=== PATIENT | female | born 1960 | race Caucasian/White ===

== ENCOUNTER 2020-02-13 18:17 | Emergency (ER) | payer BC ==
--- NOTE | 2020-02-13 18:57 | EDM.PDOC ---
ED HPI GENERAL MEDICAL PROBLEM - General Chief Complaint: Lower Extremity Injury/Pain Stated Complaint: LEFT CHOW INJURY/CUT Time Seen by Provider: 02/13/20 18:45 Source of Information: Reports: Patient, Old Records, RN History Limitations: Reports: No Limitations - History of Present Illness INITIAL COMMENTS - FREE TEXT/NARRATIVE: 59 yo female [place] and fell lacerating her anterior L chow area. She did some preliminary cleaning, but recognized that she was not getting all of the debri out. Has RA and is on meds that may increase her risk of infection. Thinks her tetanus was 4 yrs ago. No other injuries. Onset: Today Onset Date: 02/13/20 Onset Time: 18:00 Duration: Minutes:, Constant Location: Reports: Lower Extremity, Left Quality: Reports: Dull Severity: Mild Improves with: Reports: None Worsens with: Reports: Other (touching wound) Context: Reports: Trauma Associated Symptoms: Reports: No Other Symptoms Treatments [employer] T[employer]ER: Reports: Other (see below) (water ran over wound) Left Leg Pain Score (Numeric/FACES): 2 - Related Data Allergies Allergy/AdvReac Type Severity Reaction Status Date / Time Sulfa (Sulfonamide Allergy Cannot Verified 02/13/20 18:33 Antibiotics) Remember Home Meds: Home Meds Zolpidem Tartrate [Zolpidem Tartrate ER] 6.25 mg PO DAILY 02/22/14 [History] estradioL [Estradiol] 1 mg PO DAILY 02/22/14 [History] DULoxetine [Cymbalta] 90 mg PO DAILY 11/30/15 [History] buPROPion HCl [Bupropion Xl] 150 mg PO DAILY 11/30/15 [History] predniSONE [Prednisone] 10 mg PO DAILY 12/02/15 [History] Hydroxychloroquine Sulfate 200 mg PO DAILY 02/13/20 [History] lamoTRIgine [Lamictal] 100 mg PO BEDTIME 02/13/20 [History] Past Medical History HEENT History: Reports: Impaired Vision Musculoskeletal History: Reports: RA Other Musculoskeletal History: bone/joint autoimmune disorder Psychiatric History: Reports: Anxiety, Bipolar - Past Surgical History GI Surgical History: Reports: Other (See Below) Social & Family History - Tobacco Use Smoking Status *Q: Never Smoker - Caffeine Use Caffeine Use: Reports: Coffee, Soda - Recreational Drug Use Recreational Drug Use: No Review of Systems - Review of Systems Review Of Systems: See Below Constitutional: Reports: No Symptoms Musculoskeletal: Reports: No Symptoms Skin: Reports: Wound (L chow) Neurological: Reports: No Symptoms ED EXAM, GENERAL - Physical Exam Exam: See Below Exam Limited By: No Limitations General Appearance: Alert, WD/WN, No Apparent Distress Extremities: Normal Inspection, Normal Range of Motion, No Pedal Edema, Other (wound L anterior chow area). No: Non-Tender, Pedal Edema, Limited Range of Motion, Increased Warmth, Redness Neurological: Alert, Oriented, CN II-XII Intact, Normal Cognition, No Motor/Sensory Deficits Psychiatric: Normal Affect, Normal Mood Skin Exam: Warm, Dry, Normal Color, No Rash, Wound/Incision (somewhat gaping approx 3 cm vertical laceration over the distal/anterior L chow. No active bleeding, but there is some debri present. CMS is intact distally.). No: Intact, Increased Warmth ED TRAUMA EXTREMITY PROCEDURES - Laceration/Wound Repair Left Lower Anterior Leg Lac/Wound Length In cm: 3.5 Appearance: Subcutaneous, Linear, Moderately Contaminated Distal NVT: Neuro & Vascular Intact, No Tendon Injury Anesthetic Type: Local Local Anesthesia - Lidocaine (Xylocaine): 1% with EPI (8 ml) Local Anesthetic Volume: Other (8) Skin Prep: Saline Saline Irrigation (cc's): 75 Exploration/Debridement/Repair: Wound Explored, Moderate Debridement Closed With: Sutures Suture Size: 4-0 (and some 5-0) # of Sutures: 11 Suture Type: Nylon, Interrupted, Simple, Mattress Drain Placement: No Sterile Dressing Applied: Nurse Tetanus Status Addressed: Yes Complications: No Course - Vital Signs Text/Narrative:: Wound anesthetized locally with 5 ml of 1% lido + epi. Wound irrigated by RN. Last Recorded V/S: Last Vital Signs Temp 35.9 C L 02/13/20 18:41 Pulse 80 02/13/20 19:29 Resp 12 02/13/20 18:41 BP 128/84 02/13/20 19:29 Pulse Ox 97 02/13/20 19:29 Departure - Departure Time of Disposition: 19:40 Disposition: Home, Self-Care 01 Condition: Fair Clinical Impression: Laceration of left leg Qualifiers: Encounter type: initial encounter Qualified Code(s): S81.812A - Laceration without foreign body, left lower leg, initial encounter - Discharge Information *PRESCRIPTION DRUG MONITORING PROGRAM REVIEWED*: Not Applicable *COPY OF PRESCRIPTION DRUG MONITORING REPORT IN PATIENT [place]: Not Applicable Instructions: Sutured Wound Care, [id number] Referrals: Rosana Azul MD [Primary Care Provider] - Forms: ED Department Discharge Additional Instructions: Keep leg elevated above your heart for 24 hrs. Clean wound twice daily with soap and water. Dry. Apply antibiotic ointment and a new dressing. Take acetaminophen as needed for pain relief. Recheck for signs of infection. Stitches out in about 10-11 days with your provider. Keep wound clean for 3 days. Sepsis Event Note (ED) - Evaluation Sepsis Screening Result: No Definite Risk - Focused Exam Vital Signs: Vital Signs Temp Pulse Resp BP Pulse Ox 02/13/20 19:29 80 128/84 97 02/13/20 18:41 35.9 C L 94 12 123/79 97 02/13/20 18:29 35.9 C L 94 12 123/79 97
[2020-02-13 19:30] VITALS: BP 128/84; PULSE 80
[2020-02-13] MEDS ORDERED: Bacitracin Oint 1 GM U/D Packet TOP ONE (19:30)
== END 2020-02-13 19:50 | disposition home or self-care (01) ==
LOC: JP.ED 18:17
DX: S81.812A Laceration without foreign body, left lower leg, initial encounter (principal); F41.9 Anxiety disorder, unspecified; F31.9 Bipolar disorder, unspecified; Z88.2 Allergy status to sulfonamides; Z79.899 Other long term (current) drug therapy; W19.XXXA Unspecified fall, initial encounter; Y93.02 Activity, running
CPT/HCPCS: 12002; 99282

== ENCOUNTER 2020-07-24 06:55 | Emergency (ER) | payer BC ==
[2020-07-24 07:20] VITALS: BP 119/76; PULSE 97
--- NOTE | 2020-07-24 07:41 | EDM.PDOC ---
ED HPI GENERAL MEDICAL PROBLEM - General Chief Complaint: General Stated Complaint: PAIN UNDER RIB AREA AND A RASH Time Seen by Provider: 07/24/20 07:15 Source of Information: Reports: Patient History Limitations: Reports: No Limitations - History of Present Illness INITIAL COMMENTS - FREE TEXT/NARRATIVE: 59-year-old female with some vague left-sided chest discomfort and shoulder discomfort over the past week, no shortness of breath or fever but she noticed a rash today. She was concerned she may have shingles. She takes valacyclovir on a as needed basis for cold sores and last took medication 2 to 3 weeks ago. Onset: Gradual (Vague symptoms for for 5 days, noticed a rash today) Location: Reports: Chest (Left side) Associated Symptoms: Reports: Chest Pain Left Chest Pain Score (Numeric/FACES): 6 - Related Data Allergies Allergy/AdvReac Type Severity Reaction Status Date / Time Sulfa (Sulfonamide Allergy Cannot Verified 07/24/20 07:06 Antibiotics) Remember Home Meds: Home Meds Zolpidem Tartrate [Zolpidem Tartrate ER] 6.25 mg PO DAILY 02/22/14 [History] DULoxetine [Cymbalta] 90 mg PO DAILY 11/30/15 [History] buPROPion HCl [Bupropion Xl] 300 mg PO DAILY 11/30/15 [History] predniSONE [Prednisone] 5 mg PO DAILY 12/02/15 [History] Hydroxychloroquine Sulfate 200 mg PO DAILY 02/13/20 [History] lamoTRIgine [Lamictal] 100 mg PO BEDTIME 02/13/20 [History] Leflunomide 1 tab PO ASDIRECTED 07/24/20 [History] Pregabalin [Lyrica] 75 mg PO BID 07/24/20 [History] Upadacitinib [Rinvoq] 1 tab PO DAILY 07/24/20 [History] Past Medical History HEENT History: Reports: Impaired Vision [employer] History: Reports: Musculoskeletal History: Reports: RA Other Musculoskeletal History: bone/joint autoimmune disorder Psychiatric History: Reports: Anxiety, Bipolar - Infectious Disease History Infectious Disease History: Reports: Chicken Pox - Past Surgical History GI Surgical History: Reports: Other (See Below) Other GI Surgeries/Procedures: ileus - 2015. mass removed (non-cancerous) in 2013 Social & Family History - Tobacco Use Tobacco Use Status *Q: Never Tobacco User Second Hand Smoke Exposure: No - Caffeine Use Caffeine Use: Reports: Coffee, Soda - Alcohol Use Days Per Week of Alcohol Use: 1 Number of Drinks Per Day: 1 Total Drinks Per Week: 1 - Recreational Drug Use Recreational Drug Use: No ED ROS GENERAL - Review of Systems Review Of Systems: See Below Constitutional: Denies: Fever, Chills Respiratory: Denies: Shortness of Breath Cardiovascular: Reports: Chest Pain (Left side) GI/Abdominal: Denies: Abdominal Pain, Nausea, Vomiting Skin: Reports: Rash Neurological: Denies: Headache ED EXAM, GENERAL - Physical Exam Exam: See Below Exam Limited By: No Limitations General Appearance: Alert, No Apparent Distress Head: Atraumatic Respiratory/Chest: No Respiratory Distress Neurological: Alert, Oriented Psychiatric: Normal Affect, Normal Mood Skin Exam: Warm, Dry, Other (She does have a typical shingles pattern rash on the left flank extending around to the left chest around the T11 distribution. There are scattered early vesicles on an erythematous base) Course - Vital Signs Last Recorded V/S: Last Vital Signs Temp 96.3 F L 07/24/20 07:19 Pulse 97 07/24/20 07:19 Resp 16 07/24/20 07:19 BP 119/76 07/24/20 07:19 Pulse Ox 95 07/24/20 07:19 - Re-Assessments/Exams Free Text/Narrative Re-Assessment/Exam: 07/24/20 07:57 Patient will take her valacyclovir twice daily for 5 days and take her Lyrica as prescribed. I also gave her 10 hydrocodone for extra pain control. She will return if worsening at any time such as shortness of breath or persistent fever, or recheck in 5 to 7 days if not improving satisfactorily. She will continue her other regular medications. Departure - Departure Time of Disposition: 07:51 Disposition: Home, Self-Care 01 Clinical Impression: Shingles Qualifiers: Herpes zoster complications: without complications Qualified Code(s): B02.9 - Zoster without complications - Discharge Information Instructions: Shingles, [id number] Referrals: PCP,None [Primary Care Provider] - Forms: ED Department Discharge Care Plan Goals: Take valacyclovir twice daily for at least 5 days, as well as Lyrica as prescribed. An anti-inflammatory such as ibuprofen or naproxen will help, and add stronger pain medications as directed if needed. Recheck at any time if worsening such as shortness of breath, persistent fever or vomiting the medications. Consider rechecking in 5 to 7 days if not improving satisfactorily. Sepsis Event Note (ED) - Evaluation Sepsis Screening Result: No Definite Risk - Focused Exam Vital Signs: Vital Signs Temp Pulse Resp BP Pulse Ox 07/24/20 07:19 96.3 F L 97 16 119/76 95
== END 2020-07-24 07:51 | disposition home or self-care (01) ==
LOC: JP.ED 06:55
DX: B02.9 Zoster without complications (principal); F41.9 Anxiety disorder, unspecified; F31.9 Bipolar disorder, unspecified; Z79.899 Other long term (current) drug therapy; Z88.2 Allergy status to sulfonamides
CPT/HCPCS: 99282

== ENCOUNTER 2023-07-01 07:31 | Emergency (ER) | payer OTHER ==
[2023-07-01] MEDS ORDERED: Acetaminophen/HYDROcodone 325-7.5 MG Tab PO ONE (08:45)
[2023-07-01 09:43] VITALS: BP 99/64; PULSE 73
[2023-07-01] MEDS ORDERED: Diphtheria,Pertussis(Acell),Tetanus Vaccine 0.5 ML Syringe IM ONE (09:51)
[2023-07-01] MEDS ORDERED: Bacitracin Oint 28.35 GM Tube TOP ONE (09:55)
[2023-07-01] MEDS ORDERED: Bacitracin Oint 1 GM U/D Packet TOP ONE (10:03)
== END 2023-07-01 10:22 | disposition home or self-care (01) ==
LOC: JP.ED 07:31
DX: S51.851A Open bite of right forearm, initial encounter (principal); Z23 Encounter for immunization; K21.9 Gastro-esophageal reflux disease without esophagitis; Z79.899 Other long term (current) drug therapy; Z88.2 Allergy status to sulfonamides; Z88.1 Allergy status to other antibiotic agents; Z88.8 Allergy status to other drugs, medicaments and biological substances; W54.0XXA Bitten by dog, initial encounter
CPT/HCPCS: 12002; 73090; 90471; 90715; 99283; A9270

== ENCOUNTER 2023-09-02 21:01 | Emergency (ER) | payer OTHER ==
[2023-09-02] MEDS ORDERED: Pantoprazole 40 MG Vial IVPUSH ONE (21:25)
[2023-09-02] MEDS ORDERED: Promethazine 12.5 MG in Sodium Chloride 0.9% 50 ML IV ONE (21:30)
[2023-09-02 21:43] LABS: BASOPHILS PERCENT AUTO 0.2 % (0.1-1.3); EOSINOPHILS ABSOLUTE AUTO 0.07 K/uL (0.00-0.40); EOSINOPHILS PERCENT AUTO 0.6 % (0.0-5.4); HEMATOCRIT 29.7 % (34.3-46.0); HEMOGLOBIN 9.2 g/dL (11.2-15.5); IMMATURE GRAN ABSOLUTE AUTO 0.17 K/uL (0.00-0.23); IMMATURE GRAN PERCENT AUTO 1.4 % (0.0-0.7); LYMPHOCYTES ABSOLUTE AUTO 1.23 K/uL (0.8-3.3); LYMPHOCYTES PERCENT AUTO 10.3 % (11.4-47.7); MEAN CORPUSCULAR HEMOGLOBIN 28.1 pg (31.6-35.5); MEAN CORPUSCULAR VOLUME 90.8 fL (81.4-99.0); MONOCYTES ABSOLUTE AUTO 0.87 K/uL (0.20-0.90); MONOCYTES PERCENT AUTO 7.3 % (3.3-12.6); NEUTROPHILS ABSOLUTE AUTO 9.54 K/uL (1.0-7.6); NEUTROPHILS PERCENT AUTO 80.2 % (40.0-78.1); PLATELET COUNT,PLT 375 K/uL (130-375); RED BLOOD CELL COUNT 3.27 M/uL (3.77-5.24); WHITE BLOOD CELL COUNT,WBC 11.9 K/uL (3.2-11.0)
[2023-09-02 21:46] LABS: BASOPHILS ABSOLUTE AUTO 0.02 K/uL (0.00-0.10)
[2023-09-02 22:02] LABS: ALANINE AMINOTRANSFERASE,ALT 28 U/L (12-78); ALBUMIN 2.4 g/dL (3.4-5.0); ALKALINE PHOSPHATASE 60 U/L (46-116); ASPARTATE AMNIOTRANSFERASE,AST 34 U/L (15-37); BILIRUBIN TOTAL 0.2 mg/dL (0.2-1.0); BLOOD UREA NITROGEN,BUN 35 mg/dL (7-18); CALCIUM 7.5 mg/dL (8.5-10.1); CARBON DIOXIDE,CO2 29 mmol/L (21-32); CHLORIDE,CL 110 mmol/L (100-108); CREATININE 0.6 mg/dL (0.6-1.0); EST CRCL DRUG DOSING (CG) 98.71 mL/min; ESTIMATED GFR 102 mL/min (>60); GLUCOSE RANDOM 123 mg/dL (74-106); POTASSIUM,K 4.4 mmol/L (3.6-5.2); PROTEIN TOTAL,TP 4.8 g/dL (6.4-8.2); SODIUM,NA 144 mmol/L (140-148)
[2023-09-02 22:11] LABS: ANION GAP 9.4 mmol/L (5.0-14.0)
[2023-09-02] MEDS ORDERED: LORazepam 2 MG/ML SDV IVPUSH ONE (23:07)
[2023-09-03] MEDS ORDERED: Sodium Chloride 0.9% 1,000 ML IV ONE (00:07)
[2023-09-03 01:07] VITALS: BP 96/58; PULSE 68
== END 2023-09-03 00:57 ==
LOC: JP.ED 21:01
DX: K92.0 Hematemesis (principal); K21.9 Gastro-esophageal reflux disease without esophagitis; Z79.899 Other long term (current) drug therapy; Z88.2 Allergy status to sulfonamides; Z88.8 Allergy status to other drugs, medicaments and biological substances
CPT/HCPCS: 36415; 80053; 85025; 96361; 96374; 96375; 99284; 99285; C9113; J2060; J2550; J3490; J7030

== ENCOUNTER 2023-10-30 09:35 | Emergency (ER) | payer OTHER ==
[2023-10-30] MEDS: Prochlorperazine 10 MG/2 ML SDV IVPUSH ONE (10:52)
[2023-10-30] MEDS: Sodium Chloride 0.9% 10 ML Syringe FLUSH PRN (10:52)
[2023-10-30] MEDS: diphenhydrAMINE 50 MG/ML SDV IVPUSH ONE (10:52)
[2023-10-30] MEDS: Ketorolac 30 MG/ML SDV IVPUSH ONE (10:52)
[2023-10-30] MEDS: Sodium Chloride 0.9% 1,000 ML IV SCH (10:53)
[2023-10-30] MEDS ORDERED: HYDROmorphone 1 MG/ML Syringe IM ONE (12:28)
[2023-10-30 13:21] LABS: APPEARANCE,URINE CLOUDY (CLEAR); BILIRUBIN,URINE NEGATIVE (NEGATIVE); COLOR,URINE YELLOW (YELLOW); GLUCOSE,URINE NEGATIVE (NEGATIVE); KETONES,URINE 15 mg/dL (NEGATIVE); LEUKOCYTE ESTERASE,URINE TRACE (NEGATIVE); NITRITE,URINE POSITIVE (NEGATIVE); OCCULT BLOOD,URINE SMALL (NEGATIVE); PROTEIN,URINE NEGATIVE (NEGATIVE); UROBILINOGEN,URINE 0.2 EU/dL (0.2-1.0)
[2023-10-30] MEDS: Dexamethasone 4 MG/ML SDV IVPUSH ONE (13:21)
[2023-10-30] MEDS: Haloperidol Lactate 5 MG/ML SDV IVPUSH ONE (13:21)
[2023-10-30 13:29] LABS: AMORPHOUS SEDIMENT,URINE NOT SEEN; BACTERIA,URINE MANY; EPITHELIAL CELLS,URINE RARE; MUCUS,URINE NOT SEEN; RBC,URINE 0-5 (0-5); WBC,URINE 0-5 (0-5)
[2023-10-30 13:40] VITALS: BP 112/49; PULSE 77
== END 2023-10-30 14:34 | disposition home or self-care (01) ==
LOC: JP.ED 09:35
DX: G43.909 Migraine, unspecified, not intractable, without status migrainosus (principal); N30.00 Acute cystitis without hematuria; Z88.2 Allergy status to sulfonamides; Z88.8 Allergy status to other drugs, medicaments and biological substances; Z91.048 Other nonmedicinal substance allergy status; Z79.899 Other long term (current) drug therapy
CPT/HCPCS: 81001; 87086; 87088; 87186; 96361; 96374; 96375; 99283; 99284-25; J0780; J1100; J1200; J1630; J1885; J3490; J7030